=== PATIENT | male | born 2005 | race African-American/Black ===

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

== ENCOUNTER 2024-07-03 14:21 | Emergency (ER) | payer MEDICAID, OTHER ==
[~2024-07-03] VITALS: Ht 182.9 cm; Wt 75.0 kg
[2024-07-03 14:27] VITALS: O2SAT 99
[2024-07-03] MEDS: ACETAMINOPHEN 325MG TABLET PO ONE (16:04)
[2024-07-03 17:52] LABS: BASOPHILS % 0.4 % (0.0-2.0); EOSINOPHILS % 0.7 % (0.0-5.0); HEMOGLOBIN. 16.4 g/dL (14.0-18.0); LYMPHOCYTES % 7.6 % (20.0-50.0); MEAN CORPUSCULAR HEMOGLOBIN 30.6 pg (28.0-32.0); MEAN CORPUSCULAR HGB CONC 34.2 g/dL (31.0-37.0); MEAN CORPUSCULAR VOLUME 89.2 fL (80.0-94.0); MEAN PLATELET VOLUME 7.8 fl (7.4-10.4); NEUTROPHILS % 86.3 % (40.0-76.0); PLATELET 328 x1000/uL (130-400); RED BLOOD CELL COUNT 5.38 mill/uL (4.7-6.1); RED CELL DISTRIBUTION WIDTH 13.6 % (11.6-14.6); WHITE BLOOD COUNT 17.9 x1000/uL (4.5-11.0)
[2024-07-03 17:55] LABS: CHLORIDE 104 mEq/L (98-107); POTASSIUM 3.9 mEq/L (3.5-5.1); SODIUM 138 mEq/L (136-145)
[2024-07-03 17:56] LABS: CARBON DIOXIDE 24 mEq/L (21-32)
[2024-07-03 17:57] LABS: CALCIUM 10.1 mg/dL (8.7-10.4)
[2024-07-03 18:01] LABS: CREATININE 1.2 mg/dL (0.6-1.3); GLUCOSE 92 mg/dL (70-105); UREA NITROGEN BLOOD 12 mg/dL (9-23)
[2024-07-03 18:02] LABS: PARTIAL THROMBOPLASTIN TIME 21.1 sec (23.4-31.0); PROTHROMBIN TIME 11.2 sec (9.6-11.0)
[2024-07-03] MEDS: LIDOCAINE 5% PATCH TOP SCH (18:04)
[2024-07-03 20:51] VITALS: BP 148/92; PULSE 89; RESP 16
[2024-07-03] MEDS: IBUPROFEN 600MG TABLET PO ONE (20:51)
[2024-07-03] MEDS ORDERED: IOHEXOL-300 100 ML BOTTLE ONE (23:22)
== END 2024-07-03 20:53 ==
LOC: ER 14:32
DX: S70.211A Abrasion, right hip, initial encounter (principal); W13.2XXA Fall from, out of or through roof, initial encounter; F12.10 Cannabis abuse, uncomplicated; J45.909 Unspecified asthma, uncomplicated; Z88.0 Allergy status to penicillin; Y93.89 Activity, other specified; Y92.89 Other specified places as the place of occurrence of the external cause; Y99.8 Other external cause status
CPT/HCPCS: 99285; 71260; 80048; 85025; 85610; 85730; 86850; 86900; 86901; 36415; 71101; 74177; Q9967